=== PATIENT | female | born 1955 | race Asian ===

== ENCOUNTER 2024-08-11 15:00 | Emergency (ER) | payer MEDICARE, MEDICAID, SELFPAY ==
[2024-08-11 15:01] VITALS: BMI 27.4
[2024-08-11 16:02] VITALS: BP 175/81; PULSE 66; RESP 18; TEMP 37.2; O2SAT 98
[2024-08-11] MEDS: ALBUTEROL/IPRATROPIUM (Duoneb) RT SOL 3 ML NEBU INH (16:29)
[2024-08-11 16:30] VITALS: PULSE 68; RESP 22; O2SAT 98
--- NOTE | 2024-08-11 16:44 | PD.EDSOB ---
ED SOB =RME/HPI General Chief Complaint: Shortness of Breath/Dyspnea Stated Complaint: SOB X1 WEEK Time Seen by Provider: 08/11/24 15:49 Source: patient Arrival date/time: 08/11/24 15:00 A 69-year-old female with a history of asthma presents to the ED with complaints of wheezing persisting for the past two days. She reports using her inhaler 2?3 times daily without significant relief. She denies fever, chills, chest pain, or shortness of breath. She requests nebulized treatments, noting that similar episodes occur multiple times yearly. Mode of arrival: ambulatory Limitations: no limitations Related Data Home Medications ?Medication ?Instructions ?Recorded ?Confirmed cholecalciferol (vitamin D3) 1,250 50,000 unit PO QWEEK 12/14/17 12/14/17 mcg (50,000 unit) capsule levothyroxine 100 mcg tablet 100 mcg PO QDAY 12/14/17 12/14/17 pravastatin 40 mg tablet 40 mg PO HS 12/14/17 12/14/17 quetiapine 300 mg tablet,extended 300 mg PO QDAY 12/14/17 12/14/17 release 24 hr (Seroquel XR) sitagliptin phosphate 100 mg 100 mg PO QDAY 12/14/17 12/14/17 tablet (Januvia) Previous Rx's ?Medication ?Instructions ?Recorded aspirin 81 mg tablet,delayed 81 mg PO QDAY #30 tabs 12/15/17 release (Aspir-Low) acetaminophen 500 mg capsule 1,000 mg (2 x 500 mg) PO Q6H PRN 03/07/21 fever or pain #30 caps ciprofloxacin HCl 500 mg tablet 500 mg PO Q12H #14 tabs 03/07/21 (Cipro) ibuprofen 600 mg tablet 600 mg PO Q8H PRN fever or pain 03/07/21 #30 tabs albuterol sulfate 2.5 mg/3 mL 2.5 mg (3 mL) inhalation Q4H PRN 09/25/22 (0.083 %) solution for nebulization shortness of breath or wheezing #75 mL nebulizer and compressor #1 ea 09/25/22 albuterol sulfate 2.5 mg/3 mL 2.5 mg (3 mL) inhalation Q4H PRN 08/14/23 (0.083 %) solution for nebulization shortness of breath or wheezing #180 mL albuterol sulfate 90 mcg/actuation 2 - 3 puff inhalation Q3H PRN 08/14/23 aerosol inhaler shortness of breath or wheezing #8.5 grams ipratropium 0.5 mg-albuterol 3 mg 3 ml inhalation Q6H PRN shortness 08/11/24 (2.5 mg base)/3 mL nebulization of breath or wheezing #90 mL soln prednisone 20 mg tablet 40 mg (2 x 20 mg) PO QDAY 3 days 08/11/24 #6 tabs Allergies Allergy/AdvReac Type Severity Reaction Status Date / Time No Known Allergies Allergy Verified 08/11/24 15:04 Review of Systems Review of Systems Systems Reviewed: All systems reviewed, normal except as documented Narrative Review of Systems: Gen: No fever, no chills, no weight loss EYES: No discharge, no visual changes, no pain HEENT: No ear pain, no congestion, no sore throat PULM: + whezzing/shortness of breath, no cough, no congestion CV: No chest pain, no dyspnea on exertion, no palpitations GI: No nausea, no vomiting, no diarrhea, no pain, no constipation : No frequency, no urgency,? no dysuria Musc/skel: No joint pain, no back pain Skin: No rash? ED Exam General Limitations: Present no limitations General appearance: Present alert and in no apparent distress Head Head exam: Present atraumatic Eye Eye exam: Present normal appearance, PERRL and EOMI ENT ENT exam: Present normal exam, normal oropharynx and mucous membranes moist Neck Neck exam: Present normal inspection, full ROM and trachea midline Chest Chest inspection: Present normal inspection and symmetric chest wall rise Respiratory Respiratory exam: Present wheezes; Absent respiratory distress or stridor Cardiovascular Cardiovascular exam: Present regular rate, normal rhythm and normal heart sounds Abdominal Exam Abdominal exam: Present soft and normal bowel sounds Extremities Exam Extremities exam: Present normal inspection and full ROM Back Exam Back exam: Present normal inspection and full ROM Neurological Exam Neurological exam: Present alert, oriented X3 and CN II-XII intact Psychiatric Psychiatric exam: Present normal affect and normal mood Skin Skin exam: Present warm, dry, intact and normal color Course Quality Measures none Orders Category Date Time Status Albuterol/Ipratr Rt Danielle [Duoneb Rt Danielle] Med 08/11/24 16:10 Discontinued 3 ml INH X1 ONE predniSONE Med 08/11/24 16:35 Discontinued 60 mg PO X1 ONE Vital Signs Vital signs: Vital Signs Temperature 99.0 F 08/11/24 16:02 Pulse Rate 66 08/11/24 16:02 Respiratory Rate 18 08/11/24 16:02 Blood Pressure 175/81 H 08/11/24 16:02 Pulse Oximetry (%) 98 08/11/24 16:02 Oxygen Delivery Method Room Air 08/11/24 16:02 Shortness of Breath / Dyspnea MDM Narrative MDM Narrative:: 69-year-old female history as asthma presented today with wheezing. No acute distress or hypoxemia noted. Patient was given a DuoNeb resolving her wheezing. She also received a first dose steroids. Patient had complete resolution of symptoms. Patient requested for medication refills. At this time I feel the patient can be discharged safely home. DuoNebs and steroids sent to pharmacy. Strict ER precautions given to return if there is any worsening symptoms or change in condition Patient data External records reviewed:: [facility] previous records Clinical information provided by:: patient Social determinants that could affect healthcare access:: none Patient has the following chronic illnesses:: COPD, hypertension, How is presenting disease/condition affected by chronic disease/condition?: uneffected by Evaluation data The following diagnostics were reviewed and interpreted by me:: other (specify) Lab and/or radiology exams considered but not ordered:: Chest x-ray however patient has asthma reactive airway recurrent Interpretation Summary: Not applicable Medications / Prescriptions Medications or Prescriptions considered but not ordered:: Antibiotics Medication administrations:: Medication Administration History Discontinued Medications Albuterol/Ipratropium (Albuterol/Ipratropium (Duoneb) Rt Danielle 3 Ml Nebu) 3 ml INH X1 ONE Stop: 08/11/24 16:11 Last Admin: 08/11/24 16:29 Dose: 3 ml Documented By: BA Prednisone (Prednisone 20 Mg Tablet) 60 mg PO X1 ONE Stop: 08/11/24 16:36 Last Admin: 08/11/24 16:45 Dose: 60 mg Documented By: OA All medications administered and effective Consultations Consultation(s) initiated? (list below): No Diagnosis Shortness of Breath Differential Diagnosis: acute exacerbation of chronic obstructive airways disease and asthma with exacerbation Most likely diagnosis given after review of the tests above:: Asthma exacerbation wheezing Admission Indicated Admission indicated?: not indicated Admission Request Was there a request for admission?: No Disposition Plan Disposition Plan: Discharge Discharge Attestation Discharge Attestation: The patient and all family members were given an opportunity to ask questions and understood the discharge instructions. Discharge instructions specifically effects, indications for sooner follow up or return to the emergency department, and the expected course of current diagnosis. Patient condition: Stable Discharge Plan Plan Patient Disposition: HOME (Self Care) Patient condition on transfer: Stable Prescriptions/Referrals Prescriptions/Med Rec: New ipratropium-albuterol 0.5 mg-3 mg(2.5 mg base)/3 mL solution for nebulization 3 ml inhalation Q6H PRN (Reason: shortness of breath or wheezing) Qty: 90 0RF prednisone 20 mg tablet 40 mg PO QDAY 3 Days Qty: 6 0RF No Action pravastatin 40 mg Tablet 40 mg PO HS sitagliptin phosphate [Januvia] 100 mg Tablet 100 mg PO QDAY levothyroxine 100 mcg Tablet 100 mcg PO QDAY quetiapine [Seroquel XR] 300 mg Tablet Extended Release 24 Hr 300 mg PO QDAY cholecalciferol (vitamin D3) 50,000 unit Capsule 50,000 unit PO QWEEK aspirin [Aspir-Low] 81 mg Tablet,Delayed Release (Dr/Ec) 81 mg PO QDAY Qty: 30 0RF ciprofloxacin HCl [Cipro] 500 mg tablet 500 mg PO Q12H Qty: 14 0RF Rx Instructions: administer dose at least 2 hrs before/6 hrs after dairy products, calcium, zinc, and/or iron-containing products ibuprofen 600 mg tablet 600 mg PO Q8H PRN (Reason: fever or pain) Qty: 30 0RF acetaminophen 500 mg capsule 1,000 mg PO Q6H PRN (Reason: fever or pain) Qty: 30 0RF albuterol sulfate 2.5 mg /3 mL (0.083 %) solution for nebulization 2.5 mg inhalation Q4H PRN (Reason: shortness of breath or wheezing) Qty: 75 0RF (DME) nebulizer and compressor Device See Rx Instructions .Route Qty: 1 0RF Rx Instructions: As directed albuterol sulfate 2.5 mg /3 mL (0.083 %) solution for nebulization 2.5 mg IH Q4H PRN (Reason: shortness of breath or wheezing) Qty: 180 0RF albuterol sulfate 90 mcg/actuation HFA aerosol inhaler 2 - 3 puff inhalation Q3H PRN (Reason: shortness of breath or wheezing) Qty: 8.5 2RF Referrals: May Finley PA-C [Primary Care Provider] - In 1 week Problem List Clinical Impression: Asthma with exacerbation Patient/Caregiver Discharge Instructions Discharge Activity: activity as tolerated Education Materials: Asthma Additional Instructions: Start your steroids dose tomorrow Use your inhalers as directed. Follow-up with your primary doctor or clinic on Thursday for follow-up care. Return to the emergency department if any worsening symptoms change in condition. Print Language: Lithuanian Stand Alone Forms: Melia Award Info., Patient Portal Info Letter SONA/LEANN Supervising Physician DARRELL Supervising Physician: Dr Powell
[2024-08-11] MEDS: predniSONE 20 MG TABLET 60 MG PO (16:45)
[2024-08-11 18:07] VITALS: PULSE 78; O2SAT 99
== END 2024-08-11 18:08 | disposition home or self-care (01) ==
PROVIDERS: Emergency Provider Emergency Medicine; PCP Physician Assistant
DX: J45.901 Unspecified asthma with (acute) exacerbation (principal)
CPT/HCPCS: 94640; 99283; A9270; J7512

== ENCOUNTER → 2024-10-14 | Outpatient (CLI) | payer MEDICARE, MEDICAID, SELFPAY ==
--- NOTE | 2024-10-14 14:00 | ECHO_ITS ---
Transthoracic Echo Report Ht (in): 58 Wt (lb): 157 Exam Location: Echo Lab Status: Preadmit E Commerce Marketing Manager: Marine Rouse Indications: Procedure Performed: BP: / HR: Technical Quality: Technically Difficult Due to Poor Acoustic Windows MEASUREMENTS (Male / Female) Normal Values 2D ECHO LV Diastolic Diameter PLAX 3.8 cm 4.2 - 5.9 / 3.9 - 5.3 cm LV Systolic Diameter PLAX 2.1 cm IVS Diastolic Thickness 1.4 cm 0.6 - 1.0 / 0.6 - 0.9 cm LVPW Diastolic Thickness 1.1 cm 0.6 - 1.0 / 0.6 - 0.9 cm LV Relative Wall Thickness 0.7 LVOT Diameter 2.1 cm Ascending Aorta Diameter 3.2 cm DOPPLER AV Peak Velocity 84.4 cm/s AV Peak Gradient 2.8 mmHg LVOT Peak Velocity 72.3 cm/s LVOT Peak Gradient 2.1 mmHg AV Area Cont Eq pk 3.0 cm? MV Area PHT 1.8 cm? Mitral E Point Velocity 37.3 cm/s Mitral A Point Velocity 71.8 cm/s Mitral E to A Ratio 0.5 LV E' Lateral Velocity 2.5 cm/s Mitral E to LV E' Lateral Ratio 14.9 LV E' Septal Velocity 2.6 cm/s Mitral E to LV E' Septal Ratio 14.3 TR Peak Velocity 232.0 cm/s TR Peak Gradient 21.5 mmHg PV Peak Velocity 85.3 cm/s PV Peak Gradient 2.9 mmHg FINDINGS Left Ventricle Normal left ventricular size, wall thickness, systolic function with no obvious regional wall motion abnormalities. Normal left ventricular diastolic filling pattern for age. The ejection fraction is visually estimated at 65 %. Right Ventricle The right ventricle is normal in size and systolic function. The estimated right ventricular systolic pressure, 21mmHg. Left Atrium The left atrium is normal by two-dimensional, color flow and Doppler imaging with no structural abnormalities, no thrombus formation present. Right Atrium The right atrium is normal by two-dimensional imaging, color flow and Doppler imaging with no structural abnormalities, no thrombus formation present. Atrial Septum The interatrial septum appears normal with no evidence of a shunt. Aorta The aorta is normal by two-dimensional, color flow and Doppler interrogation. Mitral Valve The mitral valve is normal by two-dimensional, color flow and Doppler interrogation. There is no significant mitral valve regurgitation, stenosis or prolapse. Aortic Valve The aortic valve is trileaflet and normal by two-dimensional, color flow and Doppler interrogation. There is no significant aortic valve regurgitation. Tricuspid Valve The tricuspid valve is normal by two-dimensional, color flow and Doppler interrogation. There is no significant tricuspid valve regurgitation. Pulmonic Valve The pulmonic valve is not well visualized. There is no significant pulmonic valve regurgitation. Vessels The pulmonary artery appears normal. The inferior vena cava pulmonary and hepatic veins appear normal. Pericardium The pericardium is normal by two-dimensional imaging. There is no significant pericardial effusion. CONCLUSIONS Indications: Essential Hypertension Normal LV size and function with an estimated EF of 60 to 65%. Mild LVH. Stage I diastolic dysfunction. Normal RV size and function. TR jet inadequate to measure RVSP. Trace TR. No Pericardial Effusion. Juliocesar Armstrong (Electronically Signed) Final Date: 14 October 2024 20:21
== END | disposition home or self-care (01) ==
LOC: SDIM 14:04
PROVIDERS: PCP Physician Assistant; Referring Provider Physician Assistant; Visit Provider Physician Assistant
DX: I07.1 Rheumatic tricuspid insufficiency (principal); I50.30 Unspecified diastolic (congestive) heart failure
CPT/HCPCS: 93306